=== PATIENT | male | born 2000 | race Two or more races ===

== ENCOUNTER 2024-10-21 07:33 | Emergency (ER) | payer MEDICAID, SELFPAY ==
[2024-10-21 07:47] VITALS: BP 117/52; PULSE 70; RESP 18; TEMP 36.6; O2SAT 98; BMI 26.6
--- NOTE | 2024-10-21 09:32 | EDNOTE_ITS ---
ED General RME/HPI General Chief complaint: General Adult/Misc Complain Stated complaint: WANTS STD CHECK Time Seen by Provider: 10/21/24 07:35 Arrival date/time: 10/21/24 07:33 This is Steve Hughes he is a 24-year-old male that comes in with complaints of wanting to be checked because his girlfriend was recently diagnosed with a sexually transmitted disease per patient patient was having sexual relations with her and she had no issues. Patient recently had a Pap smear and they were waiting for the results and then recently she saw that she had some lesions around her vaginal area. She went to go get seen by her primary doctor and they ordered some labs they ordered HSV 1 and 2 and IgG. Both of them were reactive. Patient has no current lesions at this time. Patient states he wants to get treated. Related Data Allergies Allergy/AdvReac Type Severity Reaction Status Date / Time No Known Allergies Allergy Verified 10/21/24 07:37 Course Orders Category Date Time Status Chlamydia/GC/TV - PCR Stat Lab 10/21/24 Ordered GC Culture Stat Lab 10/21/24 08:29 Ordered Urinalysis, C/S if Indicated Stat Lab 10/21/24 08:29 Ordered Oxymetazoline [place] 0.05% [Afrin Nasal [place]] Med 10/21/24 08:06 Discontinued See Dose Instructions NASAL X1 ONE Vital Signs Vital signs: Vital Signs Temperature 97.9 F 10/21/24 07:47 Pulse Rate 70 10/21/24 07:47 Respiratory Rate 18 10/21/24 07:47 Blood Pressure 117/52 L 10/21/24 07:47 Pulse Oximetry (%) 98 10/21/24 07:47 Oxygen Delivery Method Room Air 10/21/24 07:47 MDM Medications Medication administrations:: Medication Administration History Discontinued Medications Oxymetazoline HCl (Oxymetazoline [place] 0.05% 15 Ml Btl) 0 spray NASAL X1 ONE Stop: 10/21/24 08:07 Last Admin: 10/21/24 08:09 Dose: Not Given Documented By: DB Non-Admin Reason: Cancelled by Provider Medical Decision Making MDM Narrative MDM Narrative: I ordered a urine and a GC chlamydia. Patient has no lesions at this time. I talked to him about the importance about wearing a condom. And I explained to him that he may get lesions but we typically do not treat them until he actually has them. He will need to be seen by his primary doctor to have a workup at that time. Patient verbalizes understanding. Patient will come back to the emergency room if symptoms change or worsen. Discharge Plan Plan Patient Disposition: HOME (Self Care) Patient condition on transfer: Stable Prescriptions/Referrals Referrals: Porter Griffin MD [Primary Care Provider] - In 1 week Problem List Clinical Impression: Encounter for assessment of STD exposure Patient/Caregiver Discharge Instructions Discharge Activity: activity as tolerated Education Materials: Diagnosing Herpes, ED Testing for Suspected STI Additional Instructions: Follow up with primary provider in 1-2 days. Come back to ED if symptoms change or worsen please make an appointment with primary provider so he can follow-up with this. Print Language: Uzbek Stand Alone Forms: Antonette Award Info., Patient Portal Info Letter PA/PATHOLOGY LABORATORY TECHNOLOGIST Supervising Physician JUANY/PATHOLOGY LABORATORY TECHNOLOGIST Supervising Physician: [email or web address]
[2024-10-21 09:47] LABS: Collection Type, Urine Voided; Squamous Epithelial Cell,Urine 0 /hpf (0-5)
[2024-10-21 10:12] LABS: Bilirubin,Urine Negative (Negative); Blood,Urine Negative (Negative); Clarity,Urine Clear (Clear/Hazy); Color,Urine Yellow (Lt Yel-Yel); Culture Indicated,Urine Not Indicated; Glucose, Urine Negative (Negative); Ketones,Urine Negative (Negative); Leukocyte Esterase,Urine Negative (Negative); Nitrite,Urine Negative (Negative); Protein,Urine Trace (Neg - Trace); RBC,Urine 2 /hpf (0-3); Specific Gravity,Urine 1.025 (1.001-1.035); Urobilinogen,Urine Negative mg/dL (0.0-1.0); WBC,Urine 6 /hpf (0-5)
[2024-10-21 13:58] LABS: Chlamydia trachomatis PCR Negative (Not Detect); Neisseria Gonorrhoeae DNA PCR Negative (Not Detect); Trichomonas Negative (Negative)
== END 2024-10-21 10:15 | disposition home or self-care (01) ==
PROVIDERS: Nurse Practitioner Family; Emergency Provider Family Medicine; PCP Family Medicine
DX: Z11.3 Encounter for screening for infections with a predominantly sexual mode of transmission (principal); Z20.2 Contact with and (suspected) exposure to infections with a predominantly sexual mode of transmission
CPT/HCPCS: 81001; 87081; 87491; 87591; 87661; 99283